=== PATIENT | female | born 1980 ===

== ENCOUNTER 2025-08-04 15:49 | Outpatient (AMB) | payer OTHER, SELFPAY ==
--- NOTE | 2025-08-04 15:53 | MHC.OFFVIS ---
Intake Visit Reasons: 6m Medication List - Last Reconciled 08/04/25 by Xin Duval MD ferrous sulfate 325 mg PO DAILY ibuprofen 800 mg PO Q8H lorazepam 0.5 mg PO DAILY PRN propranolol ER (Inderal LA) 80 mg PO DAILY HPI Comments Details: 44 yr woman with complex migraines. No major Migraine. 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 Getting migraine with visual aura once a month. She has some headaches but not bad and has not had any migraine phenomenon. Has some dizziness. In the past she's? had a second episode with visual aura and cofusion that lasted a few days. Overall the migraines are less frequent. She is better with less severe and less frequent migraine. Gets occasional visual aura followe dby a migraine of modertae intensity. She had episode 2 years ago in [place] where she woke up around 3am confused and with L occipital MOTTA. She was having some speech difficulties and talking in robotic-like voice. She also had some L sided weakness. Symptoms continued for about 6 hours. She was seen at ER in [place] with negative MRI and started on ASA 81mg which she continued for 1 year. 3 months ago she woke with reduced vision in R eye for a few hours. MRI/CT negative. ASA restarted. She saw eye doctor without any findings. Most recent episode was 1 week ago at school where she became dizzy and felt off balance with occiptial MOTTA which lasted a few hours. In between these episodes she has experienced intermittent migraines up to 1x/wk with sensitivity to light/sound/smells and occasional nausea/vomiting. [facility] Medical History (Updated 08/04/25 @ 15:59 by Xin Duval MD) Migraine Review of Systems Const Details: Sleep:? Difficulty getting to sleepadmits.? Difficulty maintaining sleepadmits.? Urge to move legsdenies.? Teeth grindingdenies.? Shouting or Kicking during sleepdenies.? Abnormal behavior during sleepdenies.? Excessive sleepdenies.? Snoringdenies.? Daytime sleepinessdenies. ???General/Constitutional:? Change in appetitedenies.? Chillsdenies.? Fatigueadmits.? Feverdenies.? Weight gaindenies.? Weight lossdenies. ???Ophthalmologic:? Blurred visiondenies.? Diminished visual acuitydenies. ???ENT:? Stuffinessdenies.? Decreased hearingdenies.? Dry mouthdenies.? Ear paindenies.? Nosebleeddenies.? Ringing in the earsadmits.? Sinus paindenies.? Sore throatdenies.? Swollen glandsdenies. ???Endocrine:? Cold intolerancedenies.? Excessive thirstdenies.? Frequent urinationdenies.? Heat intolerancedenies. ???Respiratory:? Shortness of breathadmits.? Chest paindenies.? Coughdenies. ???Breast:? Breast lumpdenies.? Nipple dischargedenies. ???Cardiovascular:? Chest pain at restdenies.? Chest pain with exertiondenies.? Claudicationdenies.? Dizzinessdenies.? Fluid accumulation in the legsdenies.? Irregular heartbeatdenies.? Palpitationsdenies. ???Gastrointestinal:? Abdominal paindenies.? Constipationdenies.? Diarrheadenies.? Difficulty swallowingdenies.? Heartburndenies.? Nauseaadmits.? Rectal bleedingdenies. ???Hematology:? Easy bruisingdenies.? Prolonged bleedingdenies. ???Genitourinary:? Frequent urinationdenies.? Urgencydenies.? Incontinencedenies.? Erectile Dysfunctiondenies. ???Musculoskeletal:? Neck paindenies.? Back paindenies.? Muscle achesadmits.? Painful jointsdenies.? Sciaticadenies.? Weaknessdenies. ???Podiatric:? Difficulty walkingdenies.? Foot numbnessdenies. ???Neurologic:? Difficulty swallowingdenies.? Balance difficultydenies.? Coordinationnormal.? Difficulty speakingdenies.? Dizzinessadmits.? Faintingdenies.? Gait abnormalitydenies.? Headacheadmits.? Loss of strengthdenies.? Loss of use of extremitydenies.? Low back paindenies.? Memory lossadmits.? Seizuresdenies.? Ticsdenies.? Tingling/Numbnessdenies.? Transient loss of visionadmits.? Tremordenies. ???Psychiatric:? Anxietyadmits.? Auditory/visual hallucinationsdenies.? Delusionsdenies.? Depressed mooddenies.? Stressorsdenies.? Substance abusedenies.? Suicidal thoughtsdenies. Physical Exam Neuro Other: Neurological: Abnormal neurological findings:??none.?Mental Status:??alert and oriented X 3,?Normal attention, orientation, memory and affect.?Cranial Nerves:??Pupils are equal, round and reactive to light. Fundoscopy shows normal disc bilaterally. External occular muscles are intact. Visual jimenez are full, no ptosis. Face is symmetrical, no facial weakness or droop. Facial sensations are normal. Tongue protrudes in midline. Palate elevates symmetrically. Shoulder shrugging is normal..?Motor Examination:??Normal muscle tone, bulk and strength,?No atrophy or fasciculations,?No drift of the extended upper extremities,?Deep tendon reflexes are 2+?,?Plantars are flexor?.?Straight Leg Raising:??90 degrees.?Sensory Exam:??Normal light touch, temperature, pinprick, vibration and joint-position sensations?,?Rhomberg sign is absent.?Coordination:??no ataxia,?no titubation,?[id number], hkmh-[id number]-[id number] test and rapid alternating movements were normal.?Gait Exam:??Within normal limits.?Cerebellar Signs:??Nhtcro-fd-madj and mnwq-[id number]-efhe is normal,?no dysdiadochokinesia?.?Extrapyramidal System:??No tremor, rigidity with normal facial expressions,?No bradykinesia, no bradyphrenia. Normal arm swing and posture. No propulsion or retropulsion.?Speech:??Normal,?no dysphasia or dysarthria..? Mini Mental Status Exam: Level of Consciousness:??Alert.?Orientation:??Knows correct year, month, date, day and season,?Knows correct city, county and state. Knows correct location and floor.?Registration:??Able to register 3 objects.?Attention:??Serial 7's performed accurately.?Recall:??Able to recall 3 out of 3 objects.?Language:??Normal spontaneous speech, fluency, repetition,naming, comprehension, reading and writing.?Total Score:??30/30.? Assessment & Plan Assessment & Plan (1) Complicated migraine: Code(s): G43.109 - Migraine with aura, not intractable, without status migrainosus Category: Medical (2) Insomnia: Code(s): G47.00 - Insomnia, unspecified Category: Medical (3) Restless legs syndrome (RLS): Code(s): G25.81 - Restless legs syndrome Category: Medical Plan Add Pramipexole 0.25 mg in pm, Iron supplements, Continue migraine prophylaxis med Medications: New pramipexole 0.25 mg PO BEDTIME 30 tabs 5RF 30 days Changed From propranolol ER (Inderal LA) 80 mg PO DAILY To propranolol ER (Inderal LA) 80 mg PO DAILY 90 caps 3RF 90 days Coding Level of Care Code Est Pt Level 4 (66011) Diagnoses Complicated migraine G43.109 Insomnia G47.00 Restless legs syndrome (RLS) G25.81
== END 2025-08-04 16:31 | disposition home or self-care (01) ==
LOC: HO.HSM 15:49
PROVIDERS: PCP Internal Medicine; Visit Provider Psychiatry & Neurology Neurology
DX: G43.109 Migraine with aura, not intractable, without status migrainosus (principal); G47.00 Insomnia, unspecified; G25.81 Restless legs syndrome
CPT/HCPCS: 99214